=== PATIENT | male | born 1950 | race Caucasian/White ===

== ENCOUNTER → 2022-03-20 07:32 | Outpatient (CLI) | payer OTHER, SELFPAY ==
--- NOTE | 2022-03-20 07:36 | DI.MRI.S_ITS ---
PROCEDURE: MR HEAD/BRAIN WO/W CON INDICATIONS: Diplopia TECHNIQUE: Noncontrast axial T1 spin echo, axial T2 fast spin echo, sagittal and axial FLAIR, coronal T2 fast spin echo, axial gradient echo, axial diffusion and ADC through the brain. After the administration of contrast, axial and coronal and sagittal T1 spin echo with fat saturation through the brain. Additional thin section pre and post contrast T1 weighted axial images were obtained through the orbits. Thin-section coronal post contrast T1 weighted images were also obtained through orbits. COMPARISON: None. FINDINGS: Image quality: Excellent. CSF spaces: Basal cisterns are patent. No extra-axial fluid collections. Ventricles are normal in size and shape. Brain: No midline shift. No intracranial bleeds or masses. No abnormal intracranial enhancement. There is cerebral volume loss for age. There is periventricular white matter chronic small vessel ischemic change. The brainstem appears normal. Diffusion-weighted images demonstrate no acute ischemic insults. No chronic ischemic insults. Normal intravascular flow voids are present. Skull and face: Calvarial marrow is normal in signal. Orbits appear normal. Sinuses: Sinuses and mastoids appear clear. Mild left-sided nasal septal deviation is incidentally noted. IMPRESSION: No imaging explanation is found for this patient's presenting symptoms. Dictated by: Ken Harris M.D. on 03/20/2022 at 8:01 Approved by: Ken Harris M.D. on 03/20/2022 at 8:03
== END ==
PROVIDERS: Family Provider Physician Assistant; PCP Physician Assistant; Referring Provider Physician Assistant Medical; Visit Provider Physician Assistant Medical
DX: H53.2 Diplopia (principal)
CPT/HCPCS: 70553

== ENCOUNTER 2023-01-01 17:44 | Emergency (ER) | payer OTHER, SELFPAY ==
[2023-01-01 18:07] VITALS: BP 133/76; PULSE 66; RESP 28; TEMP 36.9; O2SAT 97; BMI 22.9
[2023-01-01 21:33] VITALS: BP 170/82; RESP 20; O2SAT 98
--- NOTE | 2023-01-02 00:16 | ED_ITS ---
HPI - Back Pain/Injury General Chief Complaint: Back Pain/Injury Stated Complaint: Back pain Time Seen by Provider: 01/02/23 00:16 Source: patient History of Present Illness HPI Narrative: Patient is a healthy 72-year-old male who presents with back pain. He reports that he lifted up heavy object this morning and then he twisted on a rock he is had severe lower back pain since then. It is bilateral radiating around his stomach. It hurts to move and breathe. No changes in bowel or bladder habits. No weakness numbness or tingling in his legs. He last took 2 ibuprofen about 6 hours ago. Related Data Home Medications Medication Instructions Recorded Confirmed aspirin 325 mg tablet 325 mg PO PRN ##0 11/06/12 ibuprofen 200 mg capsule 400 mg PO PRN ##0 11/06/12 Previous Rx's Medication Instructions Recorded hydrocodone 5 mg-acetaminophen 325 1 tab PO Q6H PRN pain #10 tabs 01/02/23 mg tablet Allergies Allergy/AdvReac Type Severity Reaction Status Date / Time INGREDIENT: NO KNOWN - NO Allergy Unknown Uncoded 01/01/23 18:15 KNOWN DRUG ALLERGY Review of Systems Review of Systems ROS Unobtainable: All systems reviewed & are unremarkable except as noted in HPI and below Patient History tobacco type: cigars alcohol intake frequency: 0-2 drinks per day Substance Use Type: does not use Exam Initial Vital Signs Initial Vital Signs: Vital Signs Temperature 98.4 F 01/01/23 18:07 Pulse Rate 66 01/01/23 18:07 Respiratory Rate 28 H 01/01/23 18:07 Blood Pressure 133/76 01/01/23 18:07 Pulse Oximetry 97 01/01/23 18:07 Oxygen Delivery Method Room Air 01/01/23 18:07 GENERAL: Alert 72-year-old male appears uncomfortable and in pain CARDIOVASCULAR: peripheral pulses in tact, cap refill <2 sec RESPIRATORY: No respiratory distress, speaks in full sentences without difficulty BACK: No vertebral tenderness bilateral flank pain tender to palpation EXTREMITIES: Normal range of motion, no clubbing or edema. Neurovascularly intact NEUROLOGICAL: Cranial nerves II through XII grossly intact. Normal gait and speech. SKIN: Warm, dry, no petechiae, no rashes or lesions. Course Orders Ordered: Discontinued Medications Hydrocodone Bitart/Acetaminophen (Hydrocodone/Acet 5/325 Tablet) 1 tab PO NOW ONE Stop: 01/02/23 00:22 Last Admin: 01/02/23 00:37 Dose: 1 tab Documented By: ISRAEL Hydrocodone Bitart/Acetaminophen (Hydrocodone/Acet 5/325 Prepack) 1 bottle MISC SEEINSTR ONE Stop: 01/02/23 01:04 Last Admin: 01/02/23 01:08 Dose: 1 bottle Documented By: SILVESTRE Ketorolac Tromethamine (Ketorolac 30 Mg/Ml Vial) 30 mg IM NOW ONE Stop: 01/02/23 00:22 Last Admin: 01/02/23 00:38 Dose: 30 mg Documented By: ISRAEL Vital Signs Vital signs: Vital Signs - 8 hr 01/02/23 01:09 01/02/23 01:10 01/02/23 01:10 Pulse Rate 54 L Blood Pressure 140/82 Pulse Oximetry 97 97 Oxygen Delivery Method Room Air MDM - Back Pain/Injury MDM Narrative Medical decision making narrative: Patient 72-year-old male who presents with bilateral pain. Consistent with muscle spasm. He did try and lift something heavy and then had trip near fall making pain worse. It is definitely worse with movement he sitting in position of comfort. Discharge Plan Departure Patient Disposition: Home Clinical Impression: Strain of lumbar region Instructions: DI for Back Spasm Activity Restrictions/Additional Instructions: *You have been diagnosed with back pain. Spasm *What to do: At this time increase activity as tolerated light stretching. Recommend heating pad 20-30 minutes at a time *Continue to take medications as directed Ibuprofen 600 mg every 6 hours if needed for [id number] pain Vickery 1 tablet every 6 hours if needed for severe--> Sent to [facility] *Follow up with your primary care provider in 2-3 days or call [phone] *Return to ER if you should have increasing pain fever or any new, worsening or concerning symptoms CONTROLLED SUBSTANCE DISCHARGE (Narcotoic/benzodiazepine/Flexeril/Phenergan) 1. You have been prescribed narcotic medications, it does have acetaminophen/Tylenol/paracetamol in it, DO NOT TAKE MORE THAN 4,00mg in 24 hours of Tylenol. TRAMADOL DOES NOT CONTAIN TYLENOL 2. Please understand that we cannot provide further refills of narcotics, benzodiazepines or controlled substances through the ED and her pain management will need to be through your provider. 3. While on these medications you cannot drive or operate heavy machinery. 4. You cannot sign legal documents or perform any duties such as this. 5. As long as you're taking opiate pain medications he should also be taking a stool softener such as Colace, Dulcolax, MiraLAX or prune juice, to help avoid constipation. Prescriptions: New hydrocodone-acetaminophen 5-325 mg tablet 1 tab PO Q6H PRN (Reason: pain) Qty: 10 0RF No Action aspirin 325 MG tablet 325 mg PO PRN Qty: 0 ibuprofen 200 MG capsule 400 mg PO PRN Qty: 0 Referrals: Lili Santana PA-C [Primary Care Provider] - Stand Alone Forms: Patient Portal/API
[2023-01-02] MEDS: HYDROCODONE/ACET 5/325 TABLET 1 TAB PO (00:37)
[2023-01-02] MEDS: KETOROLAC 30 MG/ML VIAL IM (00:38)
[2023-01-02] MEDS: HYDROCODONE/ACET 5/325 PREPACK 1 BOTTLE MISC (01:08)
[2023-01-02 01:09] VITALS: O2SAT 97
[2023-01-02 01:10] VITALS: BP 140/82; PULSE 54; O2SAT 97
== END 2023-01-02 01:16 | disposition home or self-care (01) ==
PROVIDERS: Emergency Provider Emergency Medicine; Family Provider Physician Assistant; PCP Physician Assistant
DX: S39.012A Strain of muscle, fascia and tendon of lower back, initial encounter (principal); X50.0XXA Overexertion from strenuous movement or load, initial encounter
CPT/HCPCS: 96372; 99283; J1885

== ENCOUNTER → 2024-11-13 09:40 | Outpatient (CLI) | payer MEDICARE, SELFPAY ==
--- NOTE | 2024-11-13 09:44 | DI.CT.S_ITS ---
PROCEDURE: CT LUNG LOW DOSE SCREENING INDICATIONS: SCREENING FOR LUNG CANCER TECHNIQUE: Noncontrast 2.0-2.5 mm thick sections acquired from the pulmonary apices to the posterior costophrenic angles. 7 mm thick axial MIP, and 5 mm coronal and sagittal reformats were then acquired. For radiation dose reduction, the following was used: automated exposure control, adjustment of mA and/or kV according to patient size. COMPARISON: None. FINDINGS: Image quality: Diagnostic. Lungs and Pleura: Central and peripheral airways are normal without bronchial wall thickening or bronchiectasis. [id number] centrilobular emphysematous changes. No nodule, mass, ground-glass opacity, or consolidation. No pleural effusions or pleural calcifications. Lower Neck: No enlarged lymph nodes. Thyroid: Normal CT appearance. Axillae: No enlarged lymph nodes. Chest Wall: No suspicious chest wall lesions. Bones: No suspicious bone lesion. Mild degenerative changes in the spine. Thoracic Vessels: The aorta and pulmonary arteries demonstrate normal size. Mediastinum and Linda: No enlarged lymph nodes. Heart: Heart size is normal. No pericardial effusion. Esophagus: No wall thickening. No hiatal hernia. Upper Abdomen: Nonobstructing left upper pole intrarenal calcification and exophytic right upper pole renal cyst. Calcified splenic granuloma. Visible portions of upper abdominal organs are otherwise normal. IMPRESSION: No suspicious pulmonary nodules. LUNG-RADS 1; continued annual screening, if eligible. Clinically Significant Non-pulmonary Findings: None. Dictated by: Denice Neville M.D. on 11/13/2024 at 14:00 Approved by: Denice Neville M.D. on 11/13/2024 at 14:12
== END ==
PROVIDERS: Family Provider Physician Assistant
DX: F17.210 Nicotine dependence, cigarettes, uncomplicated (principal); Z12.2 Encounter for screening for malignant neoplasm of respiratory organs; F17.200 Nicotine dependence, unspecified, uncomplicated
CPT/HCPCS: 71271